=== PATIENT | male | born 1980 | race Caucasian/White ===

== ENCOUNTER 2021-10-12 19:17 | Emergency (ER) | payer OTHER ==
[~2021-10-12] VITALS: Ht 180.3 cm; Wt 105.0 kg
[2021-10-12 19:34] VITALS: BP 140/119
[2021-10-12] MEDS ORDERED: IBUPROFEN 600MG TABLET PO ONE (20:00)
== END 2021-10-13 00:43 | disposition home or self-care (01) ==
LOC: ER 19:17
DX: M79.672 Pain in left foot (principal)
CPT/HCPCS: 73630; 99283